=== PATIENT | male | born 1955 | race Caucasian/White ===

== ENCOUNTER 2018-03-01 10:48 | Outpatient (CLI) | payer OTHER ==
[2018-03-01 12:50] LABS: Anion Gap 12 mmol/L (10-20); BUN (Urea Nitrogen) 12 mg/dL (8.4-25.7); Calc. Creatinine Clearance 0 mL/min (70-130); Calcium 9.3 mg/dL (7.8-10.44); Carbon Dioxide 27 mmol/L (23-31); Chloride 106 mmol/L (98-107); Estimated GFR-MDRD 79; Glucose 100 mg/dL (80-115); Potassium 4.6 mmol/L (3.5-5.1); Sodium 140 mmol/L (136-145)
[2018-03-01 14:24] LABS: Hemoglobin 13.7 g/dL (14.0-18.0); Mean Corpuscular HGB CONC 34.4 g/dL (32.0-36.0); Mean Corpuscular Hemoglobin 33.2 pg (27.0-31.0); Mean Corpuscular Volume 96.4 fL (78.0-98.0); Mean Platelet Volume 7.8 fL (7.4-10.4); Platelet Count 219 thou/uL (130-400); RBC Distribution Width 12.1 % (11.5-14.5); Red Blood Cell (RBC) Count 4.12 mill/uL (4.70-6.10); White Blood Cell (WBC) Count 6.6 thou/uL (4.8-10.8)
== END 2018-03-01 10:49 | disposition home or self-care (01) ==
LOC: LABBT 10:48
PROVIDERS: ATTEND Orthopaedic Surgery
DX: Z01.812 Encounter for preprocedural laboratory examination (principal); M75.101 Unspecified rotator cuff tear or rupture of right shoulder, not specified as traumatic
CPT/HCPCS: 80048; 85027

== ENCOUNTER 2018-03-03 06:54 | Day surgery (SDC) | payer OTHER ==
[2018-03-01 11:00] VITALS: BMI 36.1
[2018-03-03] MEDS ORDERED: Midazolam HCl 2 mg/2 ml Vial ONE (07:13)
[2018-03-03] MEDS ORDERED: Fentanyl 100 MCG/2 ML VIAL ONE ×2 (07:14→12:09)
[2018-03-03] MEDS ORDERED: HYDROcodone/Acetaminophen 7.5/325 mg Tablet PO PRN ×2 (07:34)
[2018-03-03] MEDS ORDERED: traMADol HCl 50 MG TAB PO PRN ×2 (07:35)
[2018-03-03] MEDS ORDERED: Zolpidem Tartrate 5 MG TAB PO PRN (07:35)
[2018-03-03] MEDS ORDERED: Ropivacaine HCl/PF 1,100 MG in Sodium Chloride 0.9% 440 ML NERVE BLCK SCH (07:35)
[2018-03-03] MEDS ORDERED: Promethazine HCl 25 MG/ML VIAL IM PRN ×2 (07:35→12:01)
[2018-03-03] MEDS ORDERED: Fentanyl 100 MCG/2 ML VIAL IV PRN (07:35)
[2018-03-03] MEDS ORDERED: Ondansetron HCl/PF 4 MG/2 ML Vial IVP PRN ×2 (07:35→12:01)
[2018-03-03] MEDS ORDERED: CEFAZOLIN/Water 2 GM/20 ML SYRINGE ONE (07:55)
[2018-03-03] MEDS ORDERED: Bupivacaine/Epinephrine 0.25% 30 ML VIAL ONE (09:57)
[2018-03-03] MEDS ORDERED: Promethazine HCl 25 MG/ML VIAL SLOW IVP PRN (12:01)
[2018-03-03] MEDS ORDERED: HYDROcodone/Acetaminophen 5/325 mg Tablet ONE (13:37)
[2018-03-03] MEDS ORDERED: Ropivacaine 0.5% HCl/PF (150 MG/30 ML VIAL) ONE (14:51)
[2018-03-03] MEDS ORDERED: Ropivacaine 0.2% HCl/PF (40 MG/20 ML VIAL) ONE (14:51)
[2018-03-03] MEDS ORDERED: PROPOFOL 200 MG/20 ML VIAL ONE ×2 (15:30)
[2018-03-03] MEDS ORDERED: ePHEDrine/0.9% NaCl/PF SYRINGE 50 mg/10 ml ONE (15:30)
[2018-03-03] MEDS ORDERED: Lidocaine 1% PF 5 ML VIAL ONE (15:30)
[2018-03-03] MEDS ORDERED: Glycopyrrolate 0.2 MG/ML 5 ML SYRINGE ONE (15:30)
[2018-03-03] MEDS ORDERED: Ondansetron HCl/PF 4 MG/2 ML Vial ONE (15:30)
[2018-03-03] MEDS ORDERED: PHENYLEPHRINE-NS 100 MCG/ML 10 ML SYRINGE ONE (15:30)
--- NOTE | 2018-03-03 18:09 | OP ---
DATE OF PROCEDURE: 03/03/2018 PREOPERATIVE DIAGNOSES: Right leading edge subscapularis tear with biceps tendonopathy . POSTOPERATIVE DIAGNOSES: Right superior leading edge subscapularis tear with subluxed biceps tendon and biceps tendonopathy. PROCEDURE PERFORMED: 1. Open subscapularis repair. 2. Biceps tenodesis. STAFF: Andre Jay M.D. COMMUNICATIONS ELECTRICIAN SUPERVISOR: ELHAM García. ANESTHESIA: Glover. The patient received a general endotracheal intubation with interscalene block. ESTIMATED BLOOD LOSS: 75 mL. TOURNIQUET TIME: None. IMPLANTS: A 5.5 Bio[employer]posite corkscrew and a 4.7 SwiveLock double loaded. ANTIBIOTICS: Ancef 2 grams antibiotic. COMPLICATION: None. HISTORY OF PRESENT ILLNESS: Mr. Loza is a 62-year-old male with history of a previous mini open heart rotator cuff repair 13 years ago in [place], [place]. The patient had a fall off a trailer and continued pain in 2017. He has pain with internal rotation. MRI showed evidence of a subluxation of biceps with leading edge tear of the cranial subscap muscle volume loss and intact supraspinatus tear. I discussed with patient the risks and benefits and open repair to include pain, scar, bleeding, infection, damage to vital structures, decreased range of motion or strength, continued pain despite surgical intervention, damage to vital structures, loss of life or limb. The patient understood the risks and benefits and elected to proceed. PROCEDURE IN DETAIL: Timeout was performed designating the patient's right upper extremity as the operative site based on sight, consents, marking. After completion of timeout, the patient's right extremity was prepped and draped in sterile fashion, placed in a beach chair position. A deltopectoral incision was made down through skin. The deltopectoral interval was split and came down onto the tendon and found the biceps, placed a Kolbel retractor in the conjoint and the deltoid exposed. The biceps came up into the rotator interval found the undersurface tear of the subscapularis within its footprint. We followed the biceps to its origin cut it and ensure that there was no remnant stump. We then went back to the patient's subscapularis placed a drill hole for repair of the patient's rotator cuff passed a 5.5 corkscrew passed 4 suture limbs to help so the superior leading edge of subscapularis back into place. We used a double row to place it into the bicipital groove. We then used the 4.7 SwiveLock. We then used the 2 suture limbs to anchor down the patient's biceps for a biceps tenodesis. We also used 0, #1, #2 for [id number] stitches to close the rotator interval as well as to oversew the rim and the cuff over the biceps tenodesis repair. We then washed. We closed the deltopectoral with 0 Vicryl for subcutaneous tissue, then 2-0 below the skin and closed with kyleigh. The patient will be placed in a sling. He will begin elbow, wrist, and hand motion. The patient will begin passive range of motion of his shoulder. No active motion of his shoulder until followup. MISBAH
== END 2018-03-03 14:30 | disposition home or self-care (01) ==
LOC: SDC 06:54
PROVIDERS: ATTEND Orthopaedic Surgery
PROC: 0RHJ04Z Insertion of Internal Fixation Device into Right Shoulder Joint, Open Approach (ICD-10-PCS; principal; 2018-03-03)
PROC: 0LQ10ZZ Repair Right Shoulder Tendon, Open Approach (ICD-10-PCS; principal; 2018-03-03)
PROC: 0LS30ZZ Reposition Right Upper Arm Tendon, Open Approach (ICD-10-PCS; principal; 2018-03-03)
DX: S46.011A Strain of muscle(s) and tendon(s) of the rotator cuff of right shoulder, initial encounter (principal); M75.21 Bicipital tendinitis, right shoulder; I10 Essential (primary) hypertension; E78.00 Pure hypercholesterolemia, unspecified; Z87.891 Personal history of nicotine dependence; Z88.6 Allergy status to analgesic agent; Z79.82 Long term (current) use of aspirin; Z79.899 Other long term (current) drug therapy; Z98.890 Other specified postprocedural states; W17.89XA Other fall from one level to another, initial encounter
CPT/HCPCS: 96374; C1713; G8984-GP-CK; G8985-GP-CK; G8986-GP-CK; J2001; J2250; J2405; J2704; J2795; J3010; J7050